=== PATIENT | male | born 1995 | race Caucasian/White ===

== ENCOUNTER 2017-10-17 12:10 | Emergency (ER) | payer MEDICAID ==
[~2017-10-17] VITALS: Ht 182.9 cm; Wt 118.8 kg
[2017-10-17 12:27] VITALS: Ht 182.9 cm; Wt 118.8 kg
[2017-10-17 13:33] VITALS: BP 144/91
== END 2017-10-17 13:33 | disposition home or self-care (01) ==
LOC: ED 12:10
DX: S61.212A Laceration without foreign body of right middle finger without damage to nail, initial encounter (principal); W25.XXXA Contact with sharp glass, initial encounter; Y93.89 Activity, other specified; Y92.89 Other specified places as the place of occurrence of the external cause; Y99.8 Other external cause status
CPT/HCPCS: J2001

== ENCOUNTER 2017-10-19 08:55 | Emergency (ER) | payer OTHER ==
[~2017-10-19] VITALS: Ht 182.9 cm; Wt 119.7 kg
[2017-10-19 09:00] VITALS: Ht 182.9 cm; Wt 119.7 kg
[2017-10-19 09:33] VITALS: BP 130/78
== END 2017-10-19 09:33 | disposition home or self-care (01) ==
LOC: ED 08:55
DX: S61.222D Laceration with foreign body of right middle finger without damage to nail, subsequent encounter (principal); W45.8XXD Other foreign body or object entering through skin, subsequent encounter

== ENCOUNTER 2017-10-26 09:39 | Emergency (ER) | payer OTHER ==
[~2017-10-26] VITALS: Ht 182.9 cm; Wt 120.2 kg
[2017-10-26 09:52] VITALS: Ht 182.9 cm; Wt 120.2 kg
[2017-10-26 10:46] VITALS: BP 140/76
== END 2017-10-26 10:46 | disposition home or self-care (01) ==
LOC: ED 09:39
DX: S61.411D Laceration without foreign body of right hand, subsequent encounter (principal); X58.XXXD Exposure to other specified factors, subsequent encounter

== ENCOUNTER 2018-08-24 09:36 | Emergency (ER) | payer OTHER ==
[~2018-08-24] VITALS: Ht 182.9 cm; Wt 114.3 kg
[2018-08-24 09:42] VITALS: BP 144/77; Ht 182.9 cm; Wt 114.3 kg
== END 2018-08-24 10:15 | disposition home or self-care (01) ==
LOC: ED 09:36
DX: R23.3 Spontaneous ecchymoses (principal)

== ENCOUNTER 2018-09-02 05:29 | Emergency (ER) | payer OTHER ==
[~2018-09-02] VITALS: Ht 182.9 cm; Wt 110.2 kg
[2018-09-02 05:33] VITALS: Ht 182.9 cm; Wt 110.2 kg
[2018-09-02 06:24] VITALS: BP 152/89
== END 2018-09-02 09:29 | disposition home or self-care (01) ==
LOC: ED 05:29
DX: B37.0 Candidal stomatitis (principal); A63.8 Other specified predominantly sexually transmitted diseases
CPT/HCPCS: 87491; 87591; J0696